=== PATIENT | female | born 1990 | race Two or more races ===

== ENCOUNTER 2025-03-01 10:21 | Emergency (ER) | payer BC, SELFPAY ==
[2025-03-01 10:56] VITALS: BP 105/77; PULSE 79; RESP 18; TEMP 36.7; O2SAT 98; BMI 32.9
--- NOTE | 2025-03-01 11:04 | XR_ITS ---
Examination: CT abdomen and pelvis without contrast. Coronal 3-D reconstructions. Sagittal 2-D reconstructions. Date and time of exam:March 01, 2025 1159 hours INDICATIONS: Cholecystectomy one month ago with onset lower abdominal pain CTDI: vol (mGy): 10.4 DLP: (mGycm): 605 Technique: Axial images of the abdomen have been obtained, 3 mm slice thickness Intravenous contrast material has not been administered. Low dose protocols were performed. One or more of the following dose reduction techniques were used; automated exposure control, adjustment of the mA and/or KV according to patient size, use of iterative reconstruction technique. Findings: No focal liver or splenic lesion Absent gallbladder No pancreatic or adrenal mass No renal or ureteral calculi, no hydronephrosis 10 mm fat-containing umbilical hernia No bowel obstruction No pericecal inflammatory change Anteverted uterus 22 mm left adnexal cystic mass Urinary bladder wall thickening up to 3 mm no bladder calculi IMPRESSION: No abdominal or pelvic abscess No renal or ureteral calculi, no hydronephrosis 10 mm fat-containing hernia No CT findings of appendicitis bowel obstruction or diverticulitis Recommend pelvic sonography to confirm 22 mm left adnexal cystic mass Mild cystitis pattern
--- NOTE | 2025-03-01 11:05 | PD.EDRME ---
Rapid Medical Screening Exam RME Arrival date/time: 03/01/25 10:21 34-year-old female approximately 1 month status post cholecystectomy presents emerged part today for complaints of abdominal pain Chief Complaint: Abdominal Pain Vital signs: Vital Signs Temperature 98.1 F 03/01/25 10:56 Pulse Rate 79 03/01/25 10:56 Respiratory Rate 18 03/01/25 10:56 Blood Pressure 105/77 03/01/25 10:56 Pulse Oximetry (%) 98 03/01/25 10:56 Oxygen Delivery Method Room Air 03/01/25 10:56
[2025-03-01 11:22] LABS: Basophils # (Auto) 0.1 Thou/mm3 (0.0-0.2); Basophils % (Auto) 1 % (0-2.5); Eosinophils # (Auto) 0.1 Thou/mm3 (0.0-0.5); Eosinophils % (Auto) 2 % (0-10); Hematocrit 40.3 % (36.0-46.0); Hemoglobin 14.1 g/dL (12.0-16.0); Immature Granulocytes % (Auto) 0 % (0-0); Immature Granulocytes Auto 0.01 Thou/mm3 (0.00-0.00); Lymphocytes # (Auto) 2.2 Thou/mm3 (1.0-4.8); Lymphocytes % (Auto) 29 % (10-50); Mean Corpuscular Hemoglobin 31.3 pg (25.0-35.0); Mean Corpuscular Volume 90 fL (80-100); Monocytes # (Auto) 0.5 Thou/mm3 (0.0-0.8); Monocytes % (Auto) 7 % (0-12); Neutrophils # (Auto) 4.8 Thou/mm3 (1.8-7.7); Neutrophils % (Auto) 62 % (37-80); Nucleated Red Blood Cell % 0 /100 WBC (0); Platelet Count 256 Thou/mm3 (140-440); RDW Standard Deviation 38.9 fL (36.4-46.3); White Blood Count 7.7 Thou/mm3 (3.6-11.0)
[2025-03-01 11:32] LABS: Collection Type, Urine Clean Catch
[2025-03-01 11:36] LABS: Bilirubin,Urine Negative (Negative); Blood,Urine 1+ (Negative); Clarity,Urine Clear (Clear/Hazy); Color,Urine Lt-Yellow (Lt Yel-Yel); Culture Indicated,Urine Not Indicated; Glucose, Urine Negative (Negative); Ketones,Urine Negative (Negative); Leukocyte Esterase,Urine Negative (Negative); Nitrite,Urine Negative (Negative); Protein,Urine Negative (Neg - Trace); RBC,Urine 1 /hpf (0-3); Specific Gravity,Urine 1.014 (1.001-1.035); Squamous Epithelial Cell,Urine 2 /hpf (0-5); Urobilinogen,Urine Negative mg/dL (0.0-1.0); WBC,Urine 2 /hpf (0-5)
[2025-03-01 11:37] LABS: HCG Qualitative,Urine Negative
[2025-03-01 11:48] LABS: Alanine Aminotransferase 15 U/L (10-49); Albumin, Serum 4.4 gm/dL (3.5-5.0); Albumin/Globulin Ratio 1.5 (1.2-2.2); Alkaline Phosphatase 84 U/L (46-116); Anion Gap 7 (7-16); Aspartate Amino Transferase 15 U/L (0-34); BUN/Creatinine Ratio 9 Ratio (12-20); Bilirubin,Total 0.7 mg/dL (0.3-1.2); Blood Urea Nitrogen 8 mg/dL (9-23); Calcium 8.9 mg/dL (8.3-10.6); Calcium (Corrected) 8.9 mg/dL (8.5-10.1); Carbon Dioxide 26.1 mMol/L (20.0-31.0); Chloride 109 mMol/L (98-107); Creatinine (Component) 0.9 mg/dL (0.6-1.3); Estimated Creatinine Clearance 87.2 mL/min (>60); Glucose 99 mg/dL (74-106); Lipase 35 U/L (12-53); Osmolality,Calculated 281 (275-295); Potassium 4.3 mMol/L (3.4-5.1); Sodium 142 mMol/L (136-145); Total Protein 7.4 gm/dL (5.7-8.2); eGFR > 60 See Note
--- NOTE | 2025-03-01 13:20 | XR_ITS ---
Examination: Pelvic ultrasound, transabdominal, complete Technique: Transabdominal ultrasound of the pelvis performed using grayscale imaging Date and time of exam: March 01, 2025 1425 hours INDICATIONS: Lower abdominal pain today, 22 mm left adnexal cystic mass on CT pelvis study today FINDINGS: Uterus 6.9 cm endometrial stripe 0.2 cm No uterine mass or intrauterine gestation Right ovary 3.9 cm arterial flow Left ovary 3.5 cm arterial flow 11 x 8 x 18 mm cyst IMPRESSION: Left ovarian simple cyst 11 x 8 x 18 mm
[2025-03-01 16:20] VITALS: BP 127/82; PULSE 75; RESP 18; TEMP 37.1; O2SAT 97
--- NOTE | 2025-03-01 16:33 | PD.EDADULT ---
ED General RME/HPI General Chief complaint: Abdominal Pain Stated complaint: ABD PAIN Time Seen by Provider: 03/01/25 16:27 Arrival date/time: 03/01/25 10:21 CC: Umbilical pain HPI onset after stretching this morning. The patient is 1 month status post cholecystectomy that included laparoscopic procedure through the umbilicus. The patient states she has localized pain after feeling a tearing or snapping sensation like a rubber band, then the pain commenced afterwards its 1-3 on a 10 scale nonradiating denies any nausea vomiting shortness of breath or difficulty breathing. No other complaints at this time was referred to the emergency room from a call to the surgeon. Patient has no other complaints. RME / HPI RME / HPI narrative: 03/01/25 10:21 34-year-old female approximately 1 month status post cholecystectomy presents emerged part today for complaints of abdominal pain Related Data Previous Rx's ?Medication ?Instructions ?Recorded fluconazole 150 mg tablet 150 mg PO .x1 #1 tab 08/13/23 (Diflucan) ibuprofen 600 mg tablet 600 mg PO Q6H #30 tabs 08/13/23 Allergies Allergy/AdvReac Type Severity Reaction Status Date / Time No Known Allergies Allergy Verified 03/01/25 10:22 Review of Systems Review of Systems Narrative Review of Systems: GEN: No fever, no chills, no weight loss EYES: No discharge, no visual changes, no pain HEENT: No ear pain, no congestion, no sore throat PULM: No shortness of breath, no cough, no congestion CV: No chest pain, no dyspnea on exertion, no palpitations GI: No nausea, no vomiting, no diarrhea, + pain, no constipation : No frequency, no urgency, no dysuria MUSC/SKEL: No joint pain, no back pain SKIN: No rash PSYCH: No hallucinations, no depression HEME/LYMPH: No easy bleeding or bruising tendencies NEURO: No weakness, no headache Past Medical History Social History SMOKING STATUS: Never smoker ED Exam Narrative Physical exam: [General: Obese not in any acute distress Head normocephalic HEENT: Within acceptable limits Neck is supple nontender Chest equal chest rise nontender to palpation Respiratory: Clear to auscultation no wheezes crackles or rubs CV: Rate rhythm is regular no murmurs rubs or clicks Abdomen mild tenderness to the umbilicus, no outpouching bulging erythema edema or crepitus. No other abdominal pains. With deep palpation Back: No CVA tenderness no spinous process tenderness from cervical spine thoracic and lumbar spine Skin: Intact no petechiae rash induration ulceration or crepitus Extremities: Moving all extremity against resistance cap refill less than 2 seconds neurosensory intact Neuro: Awake alert oriented x3 Glascow coma 15 no focal deficits] Course Quality Measures none Orders Category Date Time Status CT abdomen pelvis wo con Stat Exams 03/01/25 11:04 Completed US pelvic complete Stat Exams 03/01/25 13:20 Completed CBC Stat Lab 03/01/25 11:14 Completed Comprehensive Metabolic Panel Stat Lab 03/01/25 11:14 Completed HCG Qualitative,Urine Stat Lab 03/01/25 11:21 Completed Lipase Stat Lab 03/01/25 11:14 Completed UA, C/S IF [Urinalysis, C/S if Indicated] Stat Lab 03/01/25 11:21 Completed Vital Signs Vital signs: Vital Signs Temperature 98.1 F 03/01/25 10:56 Pulse Rate 79 03/01/25 10:56 Respiratory Rate 18 03/01/25 10:56 Blood Pressure 105/77 03/01/25 10:56 Pulse Oximetry (%) 98 03/01/25 10:56 Oxygen Delivery Method Room Air 03/01/25 10:56 Discharge Plan Plan Patient Disposition: HOME (Self Care) Patient condition on transfer: Stable Prescriptions/Referrals Prescriptions/Med Rec: No Action ibuprofen 600 mg tablet 600 mg PO Q6H Qty: 30 0RF fluconazole [Diflucan] 150 mg tablet 150 mg PO .x1 Qty: 1 0RF Referrals: Dallas Lee MD [Primary Care Provider] - In 1 week Problem List Clinical Impression: Abdominal pain Patient/Caregiver Discharge Instructions Education Materials: Abdominal Pain Print Language: [place] Island[place] Stand Alone Forms: Rajani Award Info., Patient Portal Info Letter PA/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 bili elevation Urine is negative for UTI hCG is negative Pelvic ultrasound shows a small ovarian cyst Imaging Imaging Interpretation(s): CT shows a small fat-containing hernia. But no other acute finding.
== END 2025-03-01 16:55 | disposition home or self-care (01) ==
PROVIDERS: Nurse Practitioner Primary Care; Emergency Provider Emergency Medicine; PCP Family Medicine
DX: K42.9 Umbilical hernia without obstruction or gangrene (principal); N83.292 Other ovarian cyst, left side
CPT/HCPCS: 36415; 74176; 76856; 80053; 81001; 81025; 83690; 85025; 86965; 99284